=== PATIENT | male | born 1970 ===

== ENCOUNTER 2018-04-23 14:31 | Emergency (ER) | payer OTHER ==
[2018-04-23] MEDS ORDERED: Sodium Chloride 0.9% 10 ML Syringe FLUSH PRN (15:32)
[2018-04-23] MEDS ORDERED: Ketorolac 15 MG/ML SDV IVPUSH ONE ×2 (15:35→17:10)
[2018-04-23] MEDS ORDERED: Ondansetron 4 MG/2 ML SDV IVPUSH ONE (15:35)
[2018-04-23] MEDS ORDERED: Sodium Chloride 0.9% 10 ML Syringe FLUSH ONE (15:42)
[2018-04-23] MEDS ORDERED: Iopamidol 612 MG/ML 100 ML Bottle IVPUSH ONE (15:42)
--- NOTE | 2018-04-23 15:59 | EDM.PDOC ---
ED HPI GENERAL MEDICAL PROBLEM - General Chief Complaint: Chest Pain Stated Complaint: RIB INJURY Time Seen by Provider: 04/23/18 15:10 Source of Information: Reports: Patient History Limitations: Reports: No Limitations - History of Present Illness INITIAL COMMENTS - FREE TEXT/NARRATIVE: 47-year-old male presents for evaluation and treatment of left-sided rib pain. Patient reports that he fell down approximately 6 stairs yesterday. States he slipped and fell on concrete. Reports that he hit his left chest on the railing. States that he was down for several minutes due to the pain that he did not pass out. He denies any head trauma. He reports that he feels short of breath and his spirits in left-sided chest pain. He states that his been feeling nauseous but no vomiting. Has been feeling lightheaded but no syncope. Denies any neck pain, back pain, pain in the extremities hematuria. Patient states he is not taking anything for pain thus far. Of note he is on several narcotics any has a fentanyl patch on his right chest. Chest Pain Score (Numeric/FACES): 10 - Related Data Allergies Allergy/AdvReac Type Severity Reaction Status Date / Time zolpidem [From Ambien] Allergy Hallucinati Verified 04/23/18 14:45 ons Home Meds: Home Meds ALPRAZolam [Xanax] 0.5 mg PO BID 02/12/18 [History] Aspirin 81 mg PO DAILY 02/12/18 [History] DULoxetine [Cymbalta] 30 mg PO DAILY 02/12/18 [History] Insulin Aspart [NovoLOG] 0 unit SQ WITHMEALSANDBED 02/12/18 [History] Insulin Detemir [Levemir] 50 unit SQ BID 02/12/18 [History] Lisinopril/Hydrochlorothiazide [Lisinopril-Hctz 20-12.5 mg Tab] 1 each PO DAILY 02/12/18 [History] Metoprolol Tartrate 100 mg PO BID 02/12/18 [History] Metoprolol Tartrate 100 mg PO BID #6 tablet 02/12/18 [Rx] Naloxone HCl [Evzio] 2 mg IJ ASDIRECTED PRN 02/12/18 [History] Pregabalin [Lyrica] 100 mg PO BEDTIME #4 cap 02/12/18 [Rx] Silver Sulfadiazine [Silvadene 1% Cream 20 GM] 1 applic TOP BID PRN 02/12/18 [ History] fentaNYL [Duragesic] 25 mcg TD ASDIRECTED 02/12/18 [History] metFORMIN [Glucophage] 500 mg PO TID 02/12/18 [History] oxyCODONE HCl [Oxycodone HCl] 30 mg PO TID PRN 02/12/18 [History] Doxycycline [Vibramycin] 100 mg PO BID #28 cap 02/20/18 [Rx] Past Medical History HEENT History: Reports: Impaired Vision Cardiovascular History: Reports: High Cholesterol, Hypertension Other Gastrointestinal History: "lots of internal problems" Musculoskeletal History: Reports: Other (See Below) Other Musculoskeletal History: states was in hospital for 4 months, has chronic pain Neurological History: Reports: Brain Injury, Headaches, Chronic, Migraines Psychiatric History: Reports: Anxiety Endocrine/Metabolic History: Reports: Diabetes, Type II Social & Family History - Family History Family Medical History: Noncontributory - Tobacco Use Smoking Status *Q: Current Every Day Smoker Years of Tobacco use: 10 Packs/Tins Daily: 1 - Caffeine Use Caffeine Use: Reports: Tea - Recreational Drug Use Recreational Drug Use: No - Living Situation & Occupation Living situation: Reports: Occupation: Employed Review of Systems - Review of Systems Review Of Systems: See Below Respiratory: Reports: Shortness of Breath Cardiovascular: Reports: Chest Pain (left lower) GI/Abdominal: Reports: Abdominal Pain (LUQ), Nausea. Denies: Vomiting Genitourinary: Denies: Hematuria Musculoskeletal: Denies: Neck Pain, Arm Pain, Back Pain, Leg Pain Neurological: Denies: Syncope, Difficulty Walking ED EXAM, GENERAL - Physical Exam Exam: See Below Exam Limited By: No Limitations General Appearance: Alert, WD/WN, Mild Distress, Obese Eye Exam: Bilateral Eye: Normal Inspection, PERRL Ears: Normal External Exam Nose: Normal Inspection Throat/Mouth: Normal Inspection, Normal Lips, Normal Oropharynx, Normal Voice, No Airway Compromise Head: Atraumatic, Normocephalic Neck: Normal Inspection, Supple, Non-Tender, Full Range of Motion Respiratory/Chest: No Respiratory Distress, Lungs Clear, Normal Breath Sounds, Other (significant tenderness to light palpation to the left lower anterior and anterior lateral chest ribs 8-12, seems to exacerbate symptoms) Cardiovascular: Normal Peripheral Pulses, Regular Rate, Rhythm, No Murmur Peripheral Pulses: 2+: Radial (L), Radial (R), Dorsalis Pedis (L), Dorsalis Pedis (R) GI/Abdominal: Normal Bowel Sounds, Soft, No Distention, Tender (significant tenderness to light palpation to the LUQ, again, seems to exacerbate symptoms) Back Exam: Normal Inspection Extremities: Normal Inspection, Normal Range of Motion, Normal Capillary Refill Neurological: Alert, Oriented, Normal Cognition Psychiatric: Normal Affect, Normal Mood Skin Exam: Warm, Dry, Normal Color. No: Ecchymosis, Erythema Course - Vital Signs Last Recorded V/S: Last Vital Signs Temp 98.3 F 04/23/18 14:41 Pulse 95 04/23/18 14:41 Resp 18 04/23/18 14:41 BP 194/112 H 04/23/18 14:41 Pulse Ox 98 04/23/18 14:41 - Orders/Labs/Meds Labs: Laboratory Tests 04/23/18 04/23/18 04/23/18 Range/Units 16:18 16:18 16:44 WBC 9.20 H (4.23-9.07) K/mm3 RBC 5.71 (4.63-6.08) M/mm3 Hgb 15.6 (13.7-17.5) gm/L Hct 45.0 (40.1-51.0) % MCV 78.8 L (79.0-92.2) fl MCH 27.3 (25.7-32.2) pg MCHC 34.7 (32.2-35.5) g/dl RDW Std Deviation 43.2 (35.1-43.9) fL Plt Count 190 (163-337) K/mm3 MPV 9.9 (9.4-12.3) fl Neut % (Auto) 69.4 H (34.0-67.9) % Lymph % (Auto) 20.5 L (21.8-53.1) % Ross % (Auto) 8.2 (5.3-12.2) % Eos % (Auto) 1.6 (0.8-7.0) Baso % (Auto) 0.1 (0.1-1.2) % Neut # (Auto) 6.38 H (1.78-5.38) K/mm3 Lymph # (Auto) 1.89 (1.32-3.57) K/mm3 Ross # (Auto) 0.75 (0.30-0.82) K/mm3 Eos # (Auto) 0.15 (0.04-0.54) K/mm3 Baso # (Auto) 0.01 (0.01-0.08) K/mm3 Sodium 135 L (136-145) mEq/L Potassium 4.3 (3.5-5.1) mEq/L Chloride 100 (98-107) mEq/L Carbon Dioxide 28 (21-32) mEq/L Anion Gap 11.3 (5-15) BUN 15 (7-18) mg/dL Creatinine 1.1 (0.7-1.3) mg/dL Est Cr Clr Drug Dosing 100.29 mL/min Estimated GFR (MDRD) > 60 (>60) mL/min BUN/Creatinine Ratio 13.6 L (14-18) Glucose 170 H (74-106) mg/dL Calcium 8.8 (8.5-10.1) mg/dL Total Bilirubin 1.9 H (0.2-1.0) mg/dL AST 30 (15-37) U/L ALT 55 (16-63) U/L Alkaline Phosphatase 132 H (46-116) U/L Total Protein 7.2 (6.4-8.2) g/dl Albumin 2.9 L (3.4-5.0) g/dl Globulin 4.3 gm/dL Albumin/Globulin Ratio 0.7 L (1-2) Urine Color Yellow (Yellow) Urine Appearance Clear (Clear) Urine pH 6.5 (5.0-8.0) Ur Specific [place] 1.020 (1.005-1.030) Urine Protein 3+ H (Negative) Urine Glucose (UA) Negative (Negative) Urine Ketones Negative (Negative) Urine Occult Blood 2+ H (Negative) Urine Nitrite Negative (Negative) Urine Bilirubin Negative (Negative) Urine Urobilinogen 1.0 (0.2-1.0) Ur Leukocyte Esterase Negative (Negative) Urine RBC 5-10 H (0-5) /hpf Urine WBC 0-5 (0-5) /hpf Ur Epithelial Cells 0-5 (0-5) /hpf Urine Bacteria Not seen (FEW) /hpf Urine Mucus Not seen (FEW) /hpf Meds: Medications Discontinued Medications Generic Name Dose Route Start Last Admin Trade Name Freq PRN Reason Stop Dose Admin Iopamidol 100 ml 04/23/18 15:42 04/23/18 15:59 Isovue-300 (61%) IVPUSH 04/23/18 15:43 100 ml ONETIME ONE Administration Ketorolac Tromethamine 15 mg 04/23/18 15:35 04/23/18 16:08 Toradol IVPUSH 04/23/18 15:36 15 mg ONETIME ONE Administration Ketorolac Tromethamine 15 mg 04/23/18 17:10 04/23/18 17:20 Toradol IVPUSH 04/23/18 17:11 15 mg ONETIME ONE Administration Ondansetron HCl 4 mg 04/23/18 15:35 04/23/18 16:08 Zofran IVPUSH 04/23/18 15:36 4 mg ONETIME ONE Administration Sodium Chloride 10 ml 04/23/18 15:32 04/23/18 15:59 Saline Flush FLUSH 10 ml ASDIRECTED PRN Administration Keep Vein Open Sodium Chloride 10 ml 04/23/18 15:42 04/23/18 16:08 Saline Flush FLUSH 04/23/18 15:43 10 ml ONETIME ONE Administration - Radiology Interpretation Free Text/Narrative:: CT chest Technique: Multiple axial sections through the chest were obtained. Intravenous contrast was utilized. Comparison: Previous chest x-ray of 02/03/1918. Findings: Mediastinum and hilar regions are unremarkable. No pericardial thickening is seen. No axillary adenopathy is seen. Aorta shows no aneurysm. Minimal coronary artery calcification is seen. Mild atelectasis is noted within the left lung base. Lungs otherwise are clear. Bone window settings were reviewed which shows no acute osseous abnormality. Impression: 1. Slight atelectasis within left lung base. 2. Minimal coronary artery calcification. 3. Nothing acute is appreciated on CT study of the chest. CT abdomen and pelvis Technique: Multiple axial sections were obtained from above the dome of the diaphragm inferiorly through the pubic symphysis. Intravenous contrast was utilized. No oral contrast was given. Findings: Liver shows no focal parenchymal abnormality. Small hiatal hernia is seen. Spleen is within normal limits. Adrenal glands show no nodule. Kidneys show symmetric contrast enhancement. Low-density finding measuring 2.8 cm is noted within the mid left kidney which does not appear as a simple cyst and MRI will be recommended. Pancreas is within normal limits. Gallbladder contains no calcified gallstones. Aorta shows slight atherosclerotic calcification without aneurysm. No retroperitoneal adenopathy is seen. No pelvic mass or adenopathy is seen. No free fluid or inflammatory change is seen. Appendix not appreciated with certainty. Bone window settings were reviewed which shows no discrete bony abnormality. Partially visualized intramedullary loy is seen within the right femur. Soft tissue density is seen within the subcutaneous fat within the lower abdomen most likely due to mild soft tissue contusion. Impression: 1. 2.8 cm low density within left kidney. Difficult to exclude solid abnormality an MRI is strongly recommended with and without contrast. 2. Slight subcutaneous contusions within the fat of the lower abdomen. 3. No other acute abnormality is appreciated on CT study of the abdomen and pelvis. - Re-Assessments/Exams Free Text/Narrative Re-Assessment/Exam: 04/23/18 17:08 Low suspicion for any injury. Patient's has not bruising to the chest or abdomen. However, given his complaints of severe pain and intolerance to even light palpation on exam no choice but to CT chest, abdomen and pelvis to rule out intrathroacic and intraabdominal pathology. Reviewed labs and imaging with the patient. Repeatedly asks for pain medication. Strongly suspect drug seeking behavior. Pain treated with toradol. Patient was searched on the [place] drug registry, 1 Rx in [place] (patient is from [place] and can not include [place] in search). Recommend tylenol, motrin, heat and ice for pain. Patient informed of CT finding on left kidney and instructed to follow-up with family med as an outpatient for recommended MRI. Will discharge home at this time. Discharge instructions as documented. Departure - Departure Time of Disposition: 17:09 Disposition: Home, Self-Care 01 Condition: Fair Clinical Impression: Fall, Rib pain on left side - Discharge Information *PRESCRIPTION DRUG MONITORING PROGRAM REVIEWED*: Yes *COPY OF PRESCRIPTION DRUG MONITORING REPORT IN PATIENT ALEXEI: No Instructions: Fall Prevention in the Home Referrals: PCP,Not In Area [Primary Care Provider] - Kailyn Houston MD [Physician] - Forms: ED Department Discharge Additional Instructions: Follow-up with family medicine next week for recheck of your symptoms as well to further evaluate the area seen on your left kidney. It is recommended that you have an MRI with and without contrast to further evaluate the area on your left kidney. Recommend ice or heat to the sore areas for additional pain relief. [id number] Tylenol or Motrin as needed for pain relief. Expect to be sore for the next few days. Normally after a fall the first 3 days of the worse, if your symptoms persist beyond 7 days make sure you follow- up with family medicine. Here in [place] recommend Dr. Houston at the [facility]. Call [phone] to schedule with her. Drink plenty of fluids to help with the contrast you received in the ER today. hold your metformin x 3 days. Please return to the ER if your symptoms change or worsen.
--- NOTE | 2018-04-23 16:46 | CT ---
CT chest Technique: Multiple axial sections through the chest were obtained. Intravenous contrast was utilized. Comparison: Previous chest x-ray of 02/03/1918. Findings: Mediastinum and hilar regions are unremarkable. No pericardial thickening is seen. No axillary adenopathy is seen. Aorta shows no aneurysm. Minimal coronary artery calcification is seen. Mild atelectasis is noted within the left lung base. Lungs otherwise are clear. Bone window settings were reviewed which shows no acute osseous abnormality. Impression: 1. Slight atelectasis within left lung base. 2. Minimal coronary artery calcification. 3. Nothing acute is appreciated on CT study of the chest. Diagnostic code #2 CT abdomen and pelvis Technique: Multiple axial sections were obtained from above the dome of the diaphragm inferiorly through the pubic symphysis. Intravenous contrast was utilized. No oral contrast was given. Findings: Liver shows no focal parenchymal abnormality. Small hiatal hernia is seen. Spleen is within normal limits. Adrenal glands show no nodule. Kidneys show symmetric contrast enhancement. Low-density finding measuring 2.8 cm is noted within the mid left kidney which does not appear as a simple cyst and MRI will be recommended. Pancreas is within normal limits. Gallbladder contains no calcified gallstones. Aorta shows slight atherosclerotic calcification without aneurysm. No retroperitoneal adenopathy is seen. No pelvic mass or adenopathy is seen. No free fluid or inflammatory change is seen. Appendix not appreciated with certainty. Bone window settings were reviewed which shows no discrete bony abnormality. Partially visualized intramedullary loy is seen within the right femur. Soft tissue density is seen within the subcutaneous fat within the lower abdomen most likely due to mild soft tissue contusion. Impression: 1. 2.8 cm low density within left kidney. Difficult to exclude solid abnormality an MRI is strongly recommended with and without contrast. 2. Slight subcutaneous contusions within the fat of the lower abdomen. 3. No other acute abnormality is appreciated on CT study of the abdomen and pelvis. Diagnostic code #9
== END 2018-04-23 17:28 | disposition home or self-care (01) ==
LOC: JD.ED 14:31
DX: R07.81 Pleurodynia (principal); F17.210 Nicotine dependence, cigarettes, uncomplicated; I10 Essential (primary) hypertension; E78.00 Pure hypercholesterolemia, unspecified; E11.9 Type 2 diabetes mellitus without complications; F41.9 Anxiety disorder, unspecified; Z79.4 Long term (current) use of insulin; Z79.899 Other long term (current) drug therapy; Z88.8 Allergy status to other drugs, medicaments and biological substances; Z88.6 Allergy status to analgesic agent; W19.XXXA Unspecified fall, initial encounter
CPT/HCPCS: 36415; 71260; 74177; 80053; 81001; 85025; 96374; 96375; 96376; 99284; J1885; J2405; Q9967